=== PATIENT | male | born 1990 | race African-American/Black ===

== ENCOUNTER 2017-09-06 20:10 | Emergency (ER) | payer OTHER, BC ==
[~2017-09-06] VITALS: Ht 175.3 cm; Wt 70.0 kg
[~2017-09-06 20:10] MED LIST: PENI500T PO
[2017-09-06 20:11] VITALS: BP 148/87; PULSE 92; RESP 16; TEMP 98.9; O2SAT 96
--- NOTE | 2017-09-06 20:32 | PD ---
HPI Chief Complaint: Injury Time Seen by Provider: 20:25 Travel History International Travel<30 days: No Contact w/Intl Traveler<30days: No Traveled to known affect area: No History of Present Illness HPI 27-year-old [id number] black male presents emergency Department with complains of pain in his right middle finger after having closed in a potato slicer at work this morning around 9:30 AM. He states that he works at [employer] and was cutting potatoes and onions when he accidentally closed his finger in the slicer. He states that he did not sustain any major cut but inched his fingertip with the device. He is up-to-date with immunizations. Pain is moderate. He states that he has some tingling in the tip of his finger. Patient reports that he continued to work throughout the day and came in after work. [facility] Past Medical History Medical History: Denies Significant Hx Diminished Hearing: No Tetanus Vaccination: < 5 Years Past Surgical History Other Surgery: Yes (NECK INFECTION CHILD) Social History Alcohol Use: Yes (DAILY ) Tobacco Use: Yes (BLACK AND MILDS 6-8) Substance Use: No Allergies-Medications (Allergen,Severity, Reaction): Coded Allergies: No Known Allergies (Verified Adverse Reaction, Unknown, 09/06/17) Reported Meds & Prescriptions Reported Meds & Active Scripts Active Diclofenac Sodium DR (Diclofenac Sodium) 75 Mg Tabdr 75 Mg PO BID Pen Vk (Penicillin V Potassium) 500 Mg Tab 500 Mg PO Q12 Review of Systems General / Constitutional: No: Fever Eyes: No: Visual changes HENT: No: Headaches Cardiovascular: No: Chest Pain or Discomfort Respiratory: No: Shortness of Breath Gastrointestinal: No: Abdominal Pain Genitourinary: No: Dysuria Musculoskeletal: Positive: Arthralgias, Limited ROM, Edema, Pain Skin: No Rash Neurologic: No: Weakness Psychiatric: No: Depression Endocrine: No: Polydipsia Hematologic/Lymphatic: No: Easy Bruising Physical Exam Narrative GENERAL: This is a well-nourished, well-developed patient, in no apparent distress. SKIN: No rashes, ecchymoses or lesions. Warm and dry. HEAD: Atraumatic. Normocephalic. EYES: PERRL, EOMI, no discharge or injection. No scleral icterus. EARS: Clear NOSE: Nasal turbinates appear normal. THROAT: Mucosa pink and moist. Airway patent. NECK: Trachea midline. supple, moves head freely. LUNGS: Clear to auscultation. CV: Regular in rhythm. ABDOMEN: Soft nontender. EXT: No clubbing cyanosis or edema. Examination of the right hand reveals pain and swelling to the distal phalanx of the right middle finger. He has a subungual hematoma involving the base of the fingernail approximately 20%. The nail is attached. He has intact gross sensation. Good Refill. He states that he has some tingling in the tip. No pain in the proximal phalanx or middle phalanx. No pain in the MCP or PIP. Mild discomfort in the DIP. The remainder of the hand is unremarkable. The skin is intact. Data Data Last Documented VS Vital Signs Date Time Temp Pulse Resp B/P (MAP) Pulse Ox O2 Delivery O2 Flow Rate FiO2 09/06/17 20:11 98.9 92 16 148/87 (107) 96 Room Air Orders Orders Finger ([id number]) (09/06/17 20:28) Ed Discharge Order (09/06/17 21:27) Ibuprofen (Motrin) (09/06/17 21:30) MDM Medical Decision Making Medical Screen Exam Complete: Yes Emergency Medical Condition: Yes Medical Record Reviewed: Yes Interpretation(s) Last 24 hours Impressions Finger X-Ray 09/06/172027 Signed Impressions: Service Date/Time: Wednesday, September 06, 2017 21:03 - CONCLUSION: Unremarkable examination of the right third finger. Coy Zhao MD Differential Diagnosis MDM: High Differential diagnoses: Fracture, sprain, strain, dislocation, contusion, neurovascular injury Narrative Course X-ray of the right little finger is negative for bony injury. Trephination of the subungual hematoma. This is right middle finger contusion, subungual hematoma Procedures Procedure Narrative Trepanation of right middle finger subungual hematoma using electrocautery Diagnosis Primary Impression: Contusion of right middle finger Qualified Codes: S60.031A - Contusion of right middle finger without damage to nail, initial encounter Additional Impression: Subungual hematoma of digit of hand Qualified Codes: S60.10XA - Contusion of unspecified finger with damage to nail, initial encounter Patient Instructions: General Instructions Departure Forms: Tests/Procedures, Work Release Special Instructions: Limited use of the right hand 3 days. Additional Instructions: Rest. Elevation. Ice. Diclofenac. Follow-up with a medical doctor as needed. Return to the ER for any problems. Med/Other Pt SpecificInfo: Prescription(s) given Scripts Diclofenac Sodium DR (Diclofenac Sodium DR) 75 Mg Tabdr 75 MG PO BID, #14 TAB 0 Refills Prov: Russell Ocampo MD 09/06/17 Disposition: 01 DISCHARGE HOME Condition: Stable Houston Patel Sep 06, 2017 20:32
--- NOTE | 2017-09-06 21:15 | RADRPT ---
EXAM DATE/TIME: 09/06/2017 21:03 [place] COMPARISON: No previous studies available for comparison. INDICATIONS : Pain, right hand 3rd finger, caught in potato cutter at work MEDICAL HISTORY : None. SURGICAL HISTORY : None. ENCOUNTER: Initial ACUITY: 1 day PAIN SCORE: 10/10 LOCATION: Right 3rd finger FINDINGS: Examination of the third digit of the right hand demonstrates no evidence of fracture or dislocation. No radiopaque foreign bodies are seen. The soft tissues are intact. CONCLUSION: Unremarkable examination of the right third finger. Coy Zhao MD on September 06, 2017 at 21:12 Board Certified Radiologist. This report was verified electronically.
[2017-09-06] MEDS ORDERED: DICL75TA PO (21:27)
[2017-09-06] MEDS ORDERED: IBUPROFEN 800 MG TAB PO ONE (21:30)
== END 2017-09-06 21:47 | disposition home or self-care (01) ==
LOC: NEPD 20:10
DX: S60.10XA Contusion of unspecified finger with damage to nail, initial encounter (principal); W23.0XXA Caught, crushed, jammed, or pinched between moving objects, initial encounter; Y93.G3 Activity, cooking and baking; Y92.511 Restaurant or cafe as the place of occurrence of the external cause; Y99.0 Civilian activity done for income or pay
CPT/HCPCS: 11740; 73140